=== PATIENT | female | born 1990 | race Caucasian/White ===

== ENCOUNTER 2018-03-02 12:40 | Emergency (ER) | payer OTHER ==
[2018-03-02 12:50] VITALS: O2SAT 98
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
--- NOTE | 2018-03-02 14:29 | RAD ---
Date of service: 03/02/2018 PROCEDURE: Radiographs of the Left Shoulder HISTORY: shoulder pain COMPARISON: No prior. FINDINGS: BONES: Three views of the left shoulder were performed. No fracture is seen. No dislocation is noted. No spurring or is noted. No lytic process is seen. JOINTS: Normal. Glenohumeral and acromioclavicular joints preserved. No osteoarthritis. SOFT TISSUES: Normal. OTHER FINDINGS: Left lung is unremarkable. Left clavicle is intact. No AC joint widening is seen. IMPRESSION: Normal radiographs of the left shoulder.
[2018-03-02 14:37] VITALS: BP 128/73; PULSE 78; RESP 19; TEMP 97
== END 2018-03-02 14:38 | disposition home or self-care (01) ==
LOC: H.ER 12:40
DX: S49.92XA Unspecified injury of left shoulder and upper arm, initial encounter (principal); W19.XXXA Unspecified fall, initial encounter; Y92.89 Other specified places as the place of occurrence of the external cause